=== PATIENT | male | born 1950 | race Caucasian/White ===

== ENCOUNTER 2018-06-01 11:00 | Inpatient (IN) ==
[2018-06-01] MEDS ORDERED: ceFAZolin 2 GM Premix Inj 2 GM/50 ML PIGGYBACK IV.SIG SCH (12:15)
[2018-06-01] MEDS ORDERED: Metoprolol Tartrate 25 MG Tablet PO ONE (12:30)
[2018-06-01] MEDS ORDERED: Chlorhexidine Gluconate 2% 1 Pack (2 Cloths) TOPICAL ONE (12:30)
[2018-06-01] MEDS ORDERED: Sodium Chlor 0.9% Inj 500 ML IV.CONT ONE (12:30)
[2018-06-01 12:40] LABS: Prothrombin Time 10.3 sec (9.8-11.6)
--- NOTE | 2018-06-01 13:19 | ECG ---
Date Performed: 06/01/2018 Time Performed: 11:56:18 PTAGE: 67 years EKG: Sinus rhythm NONSPECIFIC T-WAVE ABNORMALITY BORDERLINE ECG No significant change from prior electrocardiogram. PREVIOUS TRACING : 12/20/2015 04.14 DOCTOR: Raul Macias Interpretating Date/Time 06/01/2018 13:18:43
[2018-06-01] MEDS ORDERED: Sugammadex Inj 200 MG/2 ML Vial IV.PUSH ONE (13:54)
[2018-06-01] MEDS ORDERED: ceFAZolin Inj 500 MG Vial ONE (14:21)
[2018-06-01 18:34] LABS: ABG Base Excess -1.5 mmol/L (-2-2); ABG PCO2 50 mmHg (38-42); ABG PO2 176 mmHG (61-120)
[2018-06-01] MEDS ORDERED: fentaNYL Citrate Inj 100 MCG/2 ML Ampul ONE (19:05)
[2018-06-01] MEDS ORDERED: Morphine Inj 4 MG/ML Vial IV.PUSH PRN (20:11)
[2018-06-01 20:55] LABS: Baso % (Auto) 0.3 % (0.0-2.0); Eos % (Auto) 0.1 % (0.0-4.0); Hematocrit 40.8 % (39.0-51.0); Hemoglobin 13.5 gm/dL (13.0-17.0); Lymph # (Auto) 1.3 th/mm3 (1.0-4.8); Lymph % (Auto) 7.6 % (9.0-44.0); Mean Corpuscular Hemoglobin 29.3 pg (27.0-34.0); Mean Platelet Volume 7.9 fL (7.0-11.0); Mono # (Auto) 0.7 th/mm3 (0.0-0.9); Mono % (Auto) 4.2 % (0.0-8.0); Neut # (Auto) 14.6 th/mm3 (1.8-7.7); Neut % (Auto) 87.8 % (16.0-70.0); Platelet Count 265 th/mm3 (150-450); Red Blood Count 4.58 mil/mm3 (4.50-5.90); Red Cell Distribution Width 14.6 % (11.6-17.2); White Blood Count 16.6 th/mm3 (4.0-11.0)
[2018-06-01] MEDS ORDERED: Sodium Chlor 0.9% Inj 1,000 ML IV.SIG SCH (21:00)
[2018-06-01] MEDS ORDERED: *morphine SULFATE 4 MG/ML PERIprocedure ONLY ONE (21:03)
[2018-06-01 21:11] LABS: Calcium 7.6 mg/dL (8.5-10.1)
[2018-06-01] MEDS: Ketorolac Inj 30 MG/ML (IVP) Vial IV.PUSH SCH (21:11)
[2018-06-01] MEDS: Docusate Sodium 100 MG Capsule PO SCH (21:12)
[2018-06-01] MEDS: Pantoprazole Inj 40 MG Vial IV.PUSH SCH (21:32)
[2018-06-01] MEDS: Metoprolol Tartrate 50 MG Tablet PO SCH (21:39)
[2018-06-01] MEDS: Insulin NovoLOG Aspart Correctional Sugar Inj SQ SCH (22:09)
[2018-06-01] MEDS: ceFAZolin 2 GM Premix Inj 2 GM/50 ML PIGGYBACK IV.SIG SCH (23:29)
[2018-06-02] MEDS: Ketorolac Inj 30 MG/ML (IVP) Vial IV.PUSH SCH ×4 (03:52→20:47)
[2018-06-02 06:17] LABS: Hematocrit 37.4 % (39.0-51.0); Hemoglobin 12.7 gm/dL (13.0-17.0); Mean Corpuscular Hemoglobin 30.4 pg (27.0-34.0); Mean Corpuscular Volume 89.3 fL (80.0-100.0); Mean Platelet Volume 8.4 fL (7.0-11.0); Platelet Count 214 th/mm3 (150-450); Red Blood Count 4.19 mil/mm3 (4.50-5.90); Red Cell Distribution Width 14.5 % (11.6-17.2); White Blood Count 12.7 th/mm3 (4.0-11.0)
[2018-06-02 06:49] LABS: Calcium 7.5 mg/dL (8.5-10.1); Carbon Dioxide 24.5 meq/L (21.0-32.0); Potassium 4.4 meq/L (3.5-5.1)
[2018-06-02] MEDS: Docusate Sodium 100 MG Capsule PO SCH ×2 (08:43→20:46)
[2018-06-02] MEDS: FLUoxetine 10 MG Capsule PO SCH (08:43)
[2018-06-02] MEDS: Metoprolol Tartrate 50 MG Tablet PO SCH ×2 (08:43→20:46)
[2018-06-02] MEDS: ceFAZolin 2 GM Premix Inj 2 GM/50 ML PIGGYBACK IV.SIG SCH ×2 (08:44→16:40)
[2018-06-02] MEDS: Insulin NovoLOG Aspart Correctional Sugar Inj SQ SCH ×4 (08:45→20:46)
--- NOTE | 2018-06-02 14:43 | P.PNURO ---
Subjective Patient symptoms today: Pt is s/p Robotic prostatectomy yesterday was seen today at bedside. No f/c/n/v , labs are stable. does have post/op pain. Its well managed. Urine is light pink in the tubing, no clots. Rapp is on light traction due to small leak around anastomosis. LEANN was changed to off suction. has 30cc LEANN output. On clear liquid diet. No flatus or BM yet. Asking to get a regular food Objective Vital Signs: Vital Signs 06/01/18 20:30 06/01/18 20:45 06/01/18 21:00 Temperature 97.7 F Pulse Rate 71 67 63 Respiratory Rate 16 18 Blood Pressure 168/72 H 155/68 H 184/79 H Pulse Oximetry 95 97 06/01/18 21:15 06/01/18 21:30 06/01/18 21:40 Temperature Pulse Rate 62 61 Respiratory Rate 16 14 14 Blood Pressure 161/73 H 181/78 H Pulse Oximetry 98 98 06/01/18 21:45 06/01/18 22:00 06/01/18 22:34 Temperature 97.6 F 97.1 F L Pulse Rate 59 L 58 L 58 L Respiratory Rate 18 14 17 Blood Pressure 174/68 H 165/74 H 135/62 Pulse Oximetry 98 98 96 06/02/18 04:23 06/02/18 05:57 06/02/18 08:00 Temperature 97.4 F L 98.0 F Pulse Rate 58 L 50 L Respiratory Rate 18 20 17 Blood Pressure 126/59 L 113/53 L Pulse Oximetry 96 97 06/02/18 12:00 06/02/18 12:56 Temperature 97.8 F Pulse Rate 55 L Respiratory Rate 17 Blood Pressure 93/49 L 126/58 L Pulse Oximetry 95 Intake & Output 06/01/18 06/02/18 06/02/18 18:59 06:59 18:59 Intake Total 4100 / 4100 100 / 100 Output Total 730 / 730 Balance 3370 / 3370 100 / 100 Weight 89.6 kg 91.7 kg Intake: IV 1050 / 1050 100 / 100 NS Inj 1,000 ML @ 125 mls/hr IV 1000 / 1000 .SIG .Q10H TJ Rx#:[id number] Ancef 2 GM Premix Inj 2 gm In 50 / 50 100 / 100 50 ml @ 100 mls/hr IV.SIG Q8H TJ Rx#:[id number] Oral 50 / 50 Anesthesia Amount 3000 / 3000 Output: Estimated Blood Loss 300 / 300 Urine Amount (Catheter) 350 / 350 Indwelling Urethral Catheter 350 / 350 Wound Drainage 80 / 80 # 1 Abdomen 80 / 80 Other: Weight On Admission 89.6 kg Result Diagrams: 06/02/18 05:53 06/02/18 05:03 Other Results: NAD RRR Clear lungs Abd semisoft, slightly distended Incisions are c/d/i Rapp is in place Medications and IVs: Active Medications Generic Name Dose Route Start Last Admin Trade Name Freq PRN Reason Stop Dose Admin Alprazolam 1 mg 06/01/18 20:14 Xanax PO BID PRN Anxiety Docusate Sodium 100 mg 06/01/18 21:00 06/02/18 08:43 Colace PO 100 mg BID TJ Administration Fluoxetine HCl 10 mg 06/02/18 09:00 06/02/18 08:43 Prozac PO 10 mg DAILY TJ Administration Cefazolin Sodium/Dextrose 2 gm in 50 mls @ 100 mls/hr 06/01/18 12:15 Ancef 2 Gm Premix Inj IV.SIG 06/04/18 12:14 RETORT FIREMAN TJ Cefazolin Sodium/Dextrose 2 gm in 50 mls @ 100 mls/hr 06/01/18 23:00 11:08 Ancef 2 Gm Premix Inj IV.SIG 06/02/18 15:29 Infused Q8H TJ Infusion Sodium Chloride 1,000 mls @ 125 mls/hr 06/01/18 21:00 06/02/18 05:27 Ns Inj IV.SIG Infused .Q10H TJ Infusion Insulin Aspart 0 unit 06/01/18 21:00 06/02/18 12:35 Novolog Insulin Correctional Sugar Inj SQ Not Given ACHS [facility] Protocol Ketorolac Tromethamine 15 mg 06/01/18 21:00 06/02/18 08:42 Toradol Inj IV.PUSH 06/06/18 20:59 15 mg Q6H TJ Administration Metformin HCl 500 mg 06/01/18 21:00 06/02/18 08:42 Glucophage PO 500 mg BIDPC TJ Administration Metoprolol Tartrate 50 mg 06/01/18 21:00 06/02/18 08:43 Lopressor PO 50 mg BID TJ Administration Miscellaneous Information 1 each 06/01/18 20:31 Misc Nursing Information OTHER 06/02/18 20:30 UNSCH PRN SEE LABEL COMMENTS Morphine Sulfate 4 mg 06/01/18 20:11 06/01/18 22:33 Morphine Inj IV.PUSH 4 mg Q4H PRN Administration BREAKTHROUGH PAIN Ondansetron HCl 4 mg 06/01/18 20:12 Zofran Inj IV.PUSH Q6H PRN NAUSEA OR VOMITING Oxycodone/Acetaminophen 2 tab 06/01/18 20:11 06/02/18 13:01 Percocet 5/325 Mg PO 2 tab Q4H PRN Administration PAIN SCALE 6 TO 10 Pantoprazole Sodium 40 mg 06/01/18 21:00 06/01/18 21:32 Protonix Inj IV.PUSH 40 mg Q24H TJ Administration Pravastatin Sodium 80 mg 06/01/18 21:00 06/01/18 21:39 Pravachol PO 80 mg HS TJ Administration Assessment and Plan - Plan POD#1 s/p Robotic RRP with lymph nodes dissection - Continue current management - Labs at AM - DVT prophylaxis - pain management prn - possibly advance diet tomorrow AM - IS use if in bed - OOB to ambulate - If stable possibly d/c tomorrow afternoon Discussed Condition With: Dr Yue BHANDARI attending
[2018-06-02] MEDS ORDERED: ceFAZolin 2 GM Premix Inj 2 GM/50 ML PIGGYBACK IV.SIG SCH (17:00)
[2018-06-02 20:29] VITALS: RESP 20
[2018-06-02] MEDS: Pantoprazole Inj 40 MG Vial IV.PUSH SCH (20:46)
[2018-06-03 04:38] VITALS: BP 117/52; PULSE 59; TEMP 97.9
[2018-06-03] MEDS: Ketorolac Inj 30 MG/ML (IVP) Vial IV.PUSH SCH ×2 (04:43→09:18)
[2018-06-03 07:10] LABS: Hematocrit 35.3 % (39.0-51.0); Hemoglobin 11.8 gm/dL (13.0-17.0); Mean Corpuscular HGB Conc 33.4 % (32.0-36.0); Mean Corpuscular Hemoglobin 30.2 pg (27.0-34.0); Mean Corpuscular Volume 90.4 fL (80.0-100.0); Mean Platelet Volume 9.1 fL (7.0-11.0); Platelet Count 204 th/mm3 (150-450); Red Cell Distribution Width 14.6 % (11.6-17.2); White Blood Count 11.2 th/mm3 (4.0-11.0)
[2018-06-03 07:46] LABS: Calcium 7.5 mg/dL (8.5-10.1); Carbon Dioxide 25.6 meq/L (21.0-32.0); Potassium 3.8 meq/L (3.5-5.1)
[2018-06-03 09:16] VITALS: O2SAT 97
[2018-06-03] MEDS: Insulin NovoLOG Aspart Correctional Sugar Inj SQ SCH ×2 (09:18→12:55)
[2018-06-03] MEDS: Docusate Sodium 100 MG Capsule PO SCH (09:19)
[2018-06-03] MEDS: FLUoxetine 10 MG Capsule PO SCH (09:19)
[2018-06-03] MEDS: Metoprolol Tartrate 50 MG Tablet PO SCH (09:19)
--- NOTE | 2018-06-03 12:26 | P.PNURO ---
Subjective Patient symptoms today: Pt was seen at the bedside. Doing well. No f/c/n/v, Labs are stable. Tolerated reg diabetic diet well. Ambulates. No BM yet, but + flatus. Urine color cleared up. Urine output is adequate and LEANN output is minimal. Wants to go home Objective Vital Signs: Vital Signs 06/02/18 12:56 06/02/18 16:00 06/02/18 20:00 Temperature 97.1 F L 97.7 F Pulse Rate 57 L 56 L Respiratory Rate 17 20 Blood Pressure 126/58 L 120/58 L 129/60 Pulse Oximetry 96 94 L 06/02/18 21:33 06/03/18 00:00 06/03/18 01:50 Temperature 98 F Pulse Rate 52 L Respiratory Rate 20 20 20 Blood Pressure 103/50 L Pulse Oximetry 93 L 06/03/18 04:00 06/03/18 09:15 Temperature 97.9 F Pulse Rate 59 L Respiratory Rate 20 Blood Pressure 117/52 L Pulse Oximetry 93 L 97 Intake & Output 06/02/18 06/03/18 06/03/18 18:59 06:59 18:59 Intake Total 960 / 960 290 / 290 Output Total 540 / 540 375 / 375 Balance 420 / 420 -85 / -85 Weight 93.7 kg Intake: IV 100 / 100 50 / 50 Ancef 2 GM Premix Inj 2 gm In 100 / 100 50 / 50 50 ml @ 100 mls/hr IV.SIG Q8H TJ Rx#:[id number] Oral 860 / 860 240 / 240 Output: Urine Amount (Catheter) 350 / 350 350 / 350 Indwelling Urethral Catheter 350 / 350 350 / 350 Wound Drainage 190 / 190 25 / 25 # 1 Abdomen 190 / 190 25 / 25 Result Diagrams: 06/03/18 05:10 06/03/18 05:10 Other Results: NAD RRR Clear lungs Abd soft NT slightly distended Garcia in place Incisions are intact no signs of infection Medications and IVs: Active Medications Generic Name Dose Route Start Last Admin Trade Name Freq PRN Reason Stop Dose Admin Alprazolam 1 mg 06/01/18 20:14 Xanax PO BID PRN Anxiety Docusate Sodium 100 mg 06/01/18 21:00 06/03/18 09:19 Colace PO 100 mg BID TJ Administration Fluoxetine HCl 10 mg 06/02/18 09:00 06/03/18 09:19 Prozac PO 10 mg DAILY TJ Administration Cefazolin Sodium/Dextrose 2 gm in 50 mls @ 100 mls/hr 06/01/18 12:15 Ancef 2 Gm Premix Inj IV.SIG 06/04/18 12:14 [employer] [facility] Sodium Chloride 1,000 mls @ 125 mls/hr 06/01/18 21:00 06/02/18 05:27 Ns Inj IV.SIG Infused .Q10H TJ Infusion Insulin Aspart 0 unit 06/01/18 21:00 06/03/18 09:18 Novolog Insulin Correctional Sugar Inj SQ Not Given ACHS [facility] Protocol Ketorolac Tromethamine 15 mg 06/01/18 21:00 06/03/18 09:18 Toradol Inj IV.PUSH 06/06/18 20:59 15 mg Q6H TJ Administration Metformin HCl 500 mg 06/01/18 21:00 06/03/18 09:19 Glucophage PO 500 mg BIDPC TJ Administration Metoprolol Tartrate 50 mg 06/01/18 21:00 06/03/18 09:19 Lopressor PO 50 mg BID TJ Administration Morphine Sulfate 4 mg 06/01/18 20:11 06/01/18 22:33 Morphine Inj IV.PUSH 4 mg Q4H PRN Administration BREAKTHROUGH PAIN Ondansetron HCl 4 mg 06/01/18 20:12 Zofran Inj IV.PUSH Q6H PRN NAUSEA OR VOMITING Oxycodone/Acetaminophen 2 tab 06/01/18 20:11 06/03/18 05:35 Percocet 5/325 Mg PO 2 tab Q4H PRN Administration PAIN SCALE 6 TO 10 Pantoprazole Sodium 40 mg 06/01/18 21:00 06/02/18 20:46 Protonix Inj IV.PUSH 40 mg Q24H TJ Administration Pravastatin Sodium 80 mg 06/01/18 21:00 06/02/18 20:46 Pravachol PO 80 mg HS TJ Administration Assessment and Plan - Plan POD#1 s/p Robotic RRP with lymph nodes dissection Pt recovers well and feels good Meets criteria for d/c LEANN will be removed prior to d/c He will go home with garcia cath and will be scheduled for Cystogram and office follow up after with voiding trial in 10days Discussed Condition With: Dr Turner and pt's RN
--- NOTE | 2018-06-03 15:26 | MP ---
cc: Edin Turner MD DATE OF OPERATION: 06/01/2018 DATE OF SERVICE: 06/01/2018. PREOPERATIVE DIAGNOSES: 1. [place] 3 + 4 = 7 prostate adenocarcinoma. 2. History of elevated PSA. 3. History of inguinal hernia repair. 4. History of diabetes. POSTOPERATIVE DIAGNOSES: 1. [place] 3 + 4 = 7 prostate adenocarcinoma. 2. History of elevated PSA. 3. History of inguinal hernia repair. 4. History of diabetes. PROCEDURE PERFORMED: 1. Robotic-assisted laparoscopic radical prostatectomy. 2. Bilateral pelvic lymph node dissection. SURGEON: Edin Turner MD TONGUER: Raymundo Koch MD ANESTHESIA: General. COMPLICATIONS: None. PREOPERATIVE ANTIBIOTICS: Ancef 2 grams IV. DRAINS: 1. A 20-Kyrgyz Rapp catheter to drainage. 2. A 10-Kyrgyz LEANN drain to bulb suction. ESTIMATED BLOOD LOSS: 300 mL. SPECIMENS: 1. Prostate and seminal vesicles. 2. Bilateral pelvic lymph nodes. FLUIDS: 2 liters crystalloid per anesthesia. DISPOSITION: Stable to recovery. INDICATIONS: The patient is a 67-year-old male with an elevated PSA of 31. The patient underwent transobturator prostate biopsy which came back [place] 3 + 4 = 7 adenocarcinoma of the prostate. The patient underwent a metastatic workup, which was negative. MRI of the prostate showed approximately 30 mL gland with no evidence of extraprostatic extension or seminal vesicle invasion. Pelvic lymph nodes were also negative. The treatment options were discussed and he elected to proceed with robotic prostatectomy. After risks, benefits, and alternatives were explained to the patient, including risk of urinary incontinence, erectile dysfunction, rectal injury, and anesthetic risks, the patient would like to proceed. Informed consent was obtained. DETAILS OF PROCEDURE: The patient was properly identified and brought back to the operating room and placed supine on the operating table. Proper timeout was performed. Under the direction of anesthesiology the patient was induced under general anesthetic. Appropriate preoperative antibiotics were given within one hour of start of procedure. The patient was then placed in dorsal lithotomy position and placed in steep Trendelenburg and prepped and draped in normal sterile surgical fashion. All pressure points were padded prior to positioning. A 16-Kyrgyz Rapp catheter was placed on the field and secured. A stab incision was made just to the right and superior to the umbilicus. A Veress needle was then used to gain entrance into the abdominal cavity. Pneumoperitoneum was then achieved. The incision was then extended to approximately 2 cm and a 12 mm long camera port was then passed into the abdominal cavity. The abdominal cavity was inspected, there was no evidence of any intraabdominal injury or bleeding. There were several adhesions of the sigmoid colon to the anterior abdominal wall. At this point, the remaining 5 ports were placed under direct visualization, including a 12 mm pediatric dental assistant port, an 8 mm robotic port, and a 5 mm pediatric dental assistant port on the patient's right side and two 8 mm robotic ports on the left hand side, all spaced approximately a handbreadth apart. These were placed under direct visualization. There was no obvious injury. At this time, the robot was then brought into position. I began by taking down the adhesions from the sigmoid colon to help open up the pelvis. At this point, I then dropped the bladder in standard fashion to enter the retropubic space. At this point the periprostatic fat was then removed. The superficial DV stitch was ligated with a bipolar electrocautery. I then dissected off each side of the endopelvic fascia to expose the pelvic muscles and work my way to the anterior portion of the prostate. A 1 V-Loc stitch was then used to ligate the dorsal vein complex. It was then used as a suspension stitch and brought through the periosteum of the pubic bone. At this point the anterior bladder neck was then carefully developed. There was ____ a median lobe. Both ureteral orifices were identified and well within the bladder, away from the bladder neck. I then retracted the Rapp anteriorly for traction to the prostate for the posterior dissection. This was then done with the third arm and I dissected the posterior bladder neck through posterior ____ until the seminal vesicles were identified. The vas deferens was then divided on each side and retracted anteriorly for retraction. The seminal vesicles on each side were then carefully dissected. At this point the pedicles on each side of the prostate were then taken down with the robotic vessel sealer as I marched up towards the apex of the prostate on the posterior side. Prior to doing so, I was able to peel the rectum off of the prostate. At this point I then used electrocautery to go through the previously ligated dorsal vein complex to expose the anterior urethra. The Rapp catheter was removed and I divided the urethra with cold scissors. The rectourethralis muscle was then carefully divided. At this point, the prostate was completely freed. It was then placed in the right pericolic gutter for later removal. The rectum was inspected for injury. There was no obvious rectal injury. The pelvis was irrigated out. There was some small venous bleeding on the right side of the rectum. Surgicel cigarette was placed here for hemostatic purposes. We then filled the pelvis with sterile water. A red rubber catheter was inserted into the rectum and inflated with air. There was no evidence of any bubbles, indicating the rectum remained intact. At this point, the pelvic nodes were dissected off each side in standard fashion. The iliac vein was seen ____ on each side. The tissue was then carefully removed through the pubic bone and peeled off of the obturator nerve. Both obturator nerves remained intact. Each pelvic lymph node packet was sent off for permanent. At this point, hemostasis was adequate. I then performed the vesicourethral anastomosis with a armed 2-0 Stratafix stitch. The posterior urethra at the 12 o'clock position was difficult to anastomose. There was a small gap that was bridged with a 20-Kyrgyz Rapp catheter. However, the rest anastomosis went well. At this point approximately 25 mL were placed in the balloon and it was placed on traction. The catheter was irrigated and no leak was seen. Tito 3 grams were then used for hemostatic purposes. The prostate was then placed in an EndoCatch bag for later removal. A 10-Kyrgyz LEANN drain was then placed through the third robotic arm and secured with 3-0 nylon. The prostate was then extracted through the midline incision. It was closed with 2 separate interrupted 0 Vicryl [id number] sutures. Skin incisions were closed using tamika and Dermabond. The catheter was irrigated at the end and it irrigated clear. This concluded the procedure. The patient was extubated and sent to recovery room in stable condition. Sponge, instrument, and needle count was correct at the end the case. The patient will then be transferred to the floor for routine postoperative care. MD SHRADDHA Bain/min/didi , 02:15 PM , 02:28 PM
== END 2018-06-03 17:25 | disposition home health service (06) ==
LOC: HSDI 11:00 → N07 22:21
PROVIDERS: ADMIT Urology; ATTEND Urology